=== PATIENT | male | born 1995 | race Caucasian/White ===

== ENCOUNTER 2017-06-23 10:58 | Emergency (ER) | payer OTHER ==
[~2017-06-23] VITALS: Ht 180.3 cm; Wt 109.0 kg
[2017-06-23 11:12] VITALS: BP 143/70
== END 2017-06-23 12:10 | disposition home or self-care (01) ==
LOC: EMS 10:59
DX: R23.8 Other skin changes (principal); M79.672 Pain in left foot; Z91.018 Allergy to other foods
CPT/HCPCS: 99283